=== PATIENT | female | born 1965 | race Caucasian/White ===

== ENCOUNTER 2017-01-29 13:04 | Inpatient (IN) | payer SELFPAY ==
[~2017-01-29] VITALS: Ht 124.5 cm; Wt 68.5 kg
--- NOTE | 2017-01-29 10:40 | NUR ---
RECEIVED REPORT FROM GUIDO FROM [place]. AWAITING PATIENTS ARRIVAL.
[~2017-01-29 13:04] MED LIST: ACET-2619 PO; ACET-787 PO; ASCO500T45 PO; ATOR40TA PO; BACL10TA4 PO; CRAN450C PO; DEXT1CAP3 PO; DOCU100C5 PO; GABA400C PO; GLAT20KI MR; HUM SUBQ; LANTUS SUBQ; MULT-1184 PO; NUTR30LI2 PO; QUET50TA PO; VAN1PM IV; WARF-18 PO; [UNRECOGNIZED DRUG - CODE] PO; [UNRECOGNIZED DRUG - CODE] TP
[2017-01-29 13:10] VITALS: BP 124/81
[2017-01-29] MEDS ORDERED: INSULIN LISPRO SLIDING SCALE 100 UNITS/ML VIAL SUBQ PRN (13:15)
[2017-01-29] MEDS: NACL 0.45% 1,000 ML IV SCH ×2 (13:15→23:45)
--- NOTE | 2017-01-29 13:15 | NUR ---
PATIENT ARRIVED VIA GURNEY TRANSPORTED FROM [facility]. PATIENT IS AWAKE AND ALERT BUT IS NONVERBAL. SHE DOESN'T FOLLOW COMMANDS. NO SIGNS AND SYMPTOMS OF ACUTE DISTRESS NOTED AT THIS TIME. LUNG SOUNDS ARE CLEAR BILATERALLY, BOWEL SOUNDS ARE ACTIVE. PATIENT HAS IV TO LEFT HAND, 24G. SITE IS CLEAN, DRY, PATENT AND INTACT. PATIENTS SKIN IS INTACT. TOOK PICTURES OF SCARS THAT SHE HAS ON SACRUM, RIGHT HEEL, AND RIGHT HAND. PATIENTS LEGS ARE CONTRACTED. ORIENTED PATIENT TO ROOM, PLACED CALL LIGHT WITHIN REACH. BED IN LOWEST POSITION, AND SIDERAILS UP X2. WILL CONTINUE TO MONITOR.
[2017-01-29 14:03] LABS: HEMATOCRIT 42.7 % (36-48); MEAN CORPUSCULAR HEMOGLOBIN 30 pg (27-31); MEAN CORPUSCULAR HGB CONC 33 g/dL (33-37); MEAN CORPUSCULAR VOLUME 93 fL (80-94); PLATELET COUNT (AUTO) 179 K/uL (140-450); RED BLOOD CELL COUNT(AUTO) 4.61 MIL/uL (4.20-5.40); RED CELL DISTRIBUTION WIDTH 12.6 % (11.6-13.7); WHITE BLOOD COUNT (AUTO) 5.9 K/uL (4.8-10.8)
[2017-01-29 14:25] LABS: PROTHROMBIN TIME 12.9 secs (10.8-13.4)
[2017-01-29 14:37] LABS: ANION GAP 7.3 (8-16); CARBON DIOXIDE 30.8 mmol/L (21-32); CREATININE 0.4 mg/dL (0.6-1.3); EOSINOPHILS % (MANUAL) 2 % (0-4); LYMPHOCYTES % (MANUAL) 40 % (20-46); MONOCYTES % (MANUAL) 10 % (5-12); POTASSIUM 4.1 mmol/L (3.5-5.1)
[2017-01-29 16:00] VITALS: BP 108/74
[2017-01-29] MEDS: BLOOD GLUCOSE MONITORING 1 DEV DEV FS SCH (18:16)
--- NOTE | 2017-01-29 19:23 | NUR ---
ENDORSED PATIENT TO LEASING AGENT NURSE FOR CONTINUITY OF CARE. PATIENT IN STABLE CONDITION.
--- NOTE | 2017-01-29 19:24 | NUR ---
PATIENT IS CURRENTLY AWAKE RESTING IN BED PATIENT HAS BEEN TURNED AND REPOSITIONED FOR COMFORT. NO PAIN OR DISCOMFORT NOTED.IVF INFUSING WELL IV SITE PATENT.CALL LIGHT AND FREQUENT VISUAL CHECKS WILL BE DONE.
[2017-01-29 20:00] VITALS: BP 103/62
--- NOTE | 2017-01-29 20:00 | NUR ---
Patient's Plan of Care was discussed and reviewed with GLOVE MACHINE OPERATOR: CONNOR NOEL.
--- NOTE | 2017-01-29 20:00 | NUR ---
PATIENT IS CURRENTLY RESTING IN BED LOTS OF SECRETIONS AND GURLING HEARD HOB RAISED UP AND I SUCTIONED THE PATIENT WITH THE JANKER AND SUCTIONED THE MOUTH PATIENT COUGHS BUT IS UNABLE TO COUGH UP THE SECRETIONS.I CALLED RESP THERAPIST NATY AND INFORMED HER THAT EVEN THOUGH I SUCTIONED THE PATIENT I CAN STILL HEAR GURGLING.SHE SAID SHE WILL COME SOON SHE CAN TO SUCTIONS THE PATIENT.
--- NOTE | 2017-01-29 20:15 | NUR ---
PATIENT DOING BETTER CURRENTLY SLEEPING NO MORE GURGLING HEARD AT THIS TIME.WILL CONTINUE TO MONITOR.
--- NOTE | 2017-01-29 22:15 | NUR ---
RESP THERAPIST NATY AND LEIGH ANN CAME TO CHECK ON THE PATIENT AND SEE IF SHE THEY NEED TO SUCTION HER AND LEIGH ANN ASSESSED THE PATIENT.PATIENT IS SLEEPING IN NO DISTRESS AT THIS TIME AND NO GURGLING HEARD. I TOLD NATY THAT PATIENT'S O2SAT 93-95% ON ROOM AIR. PATIENT IS CURRENTLY PINK IN COLOR NO DISTRESS. PATIENT DOESN'T NEED TO BE SUCTIONED AT THIS TIME.WILL CONTINUE TO MONITOR.FREQUENT VISUAL CHECKS WILL BE DONE.
--- NOTE | 2017-01-30 | NUR ---
PATIENT TURNED AND REPOSITIONED KEPT CLEAN AND DRY AND WAS SUCTIONED HAS FEW SECRETIONS THAT SHE CANNOT COUGH OUT VITALS STABLE 02SAT 93% ON ROOM AIR PATIENT TOLERATES SUCTIONING WELL.HOB ELEVATED AND I ALSO PUT BILATERAL HEEL PROTECTORS TO PROTECT HER HEELS FORM DEVELOPING PRESSURE SORE AREAS AND OFFLOADING WITH PILLOWS DONE ALSO.
[2017-01-30 00:26] VITALS: BP 117/79
[2017-01-30] MEDS: BLOOD GLUCOSE MONITORING 1 DEV DEV FS SCH ×4 (00:47→18:00)
--- NOTE | 2017-01-30 01:40 | NUR ---
PATIENT MONITORED SUCTIONED PATIENT TOLERATED WELL ORAL CARE GIVEN.WILL CONTINUE TO MONITOR.
--- NOTE | 2017-01-30 03:15 | NUR ---
PATIENT SUCTIONED CAREFULLY AND ORAL CARE GIVEN.PATIENT TOLERATES SUCTIONING WELL.
--- NOTE | 2017-01-30 03:49 | NUR ---
SCD'S APPLIED TO BOTH LOWER EXTREMITIES FOR DVT PROPHALAXIS.ALSO PATIENT HASN'T VOIDED SINCE THIS EVENING I INFORMED FINISH MOLDER ESTAPON AND BLADDER SCANNER WAS USED TO CHECK IF SHE IS RETAINING URINE IN HER BLADDER THE SCANNER SHOWS LESS THAN 100ML THE HIGHEST READING WAS 78ML.BLADDER IS SOFT AND NON DISTENDED PATIENT HAS NO COMPLAINS OF PAIN OR DISCOMFORT AT THIS TIME.SHE CONTINUES TO BE NPO AND IVF INFUSING WELL IV SITE PATENT. PATIENT CONTINUES TO BE TURNED AND REPOSITIONED AND PULLED UP IN BED WITH THE ASSISTANCE OF OSCAR ARMENDARIZ.
--- NOTE | 2017-01-30 05:30 | NUR ---
PATIENT STABLE SLEEPING AT THIS TIME.
--- NOTE | 2017-01-30 07:13 | NUR ---
PATIENT CURRENTLY STABLE KEPT CLEAN AND DRY IVF INFUSING WELL IV WAS RESTARTED TO RT HAND g#22 AT FIRST ATTEMPT WITH GOOD BLOOD RETURN.PATIENT SUCTIONED CONTINUES TO BE CLEAN AND DRY.
--- NOTE | 2017-01-30 07:34 | NUR ---
PATIENT RESTING IN BED SLEEPING REPORT GIVEN TO FIDENCIO FREEDMAN AT BEDSIDE ENDORSED ABOUT CONSULT WITH MD Krystal MORTON TODAY TO FOLLOW UP.SHE WILL RESUME CARE OF THE PATIENT.
--- NOTE | 2017-01-30 07:35 | NUR ---
RECEIVED REPORT FROM SIZE CHANGER NURSE CONNOR AT BEDSIDE FOR CONTINUITY OF CARE. PT IS A/O X1 TO NAME. INTRODUCED SELF AND UPDATED BOARD. PT IN STABLE CONDITION.
[2017-01-30 08:00] VITALS: BP 96/66
[2017-01-30] MEDS: NACL 0.45% 1,000 ML IV SCH ×2 (09:15→19:15)
--- NOTE | 2017-01-30 09:27 | NUR ---
PATIENT HAS BEEN SCREENED AND CATEGORIZED HIGH NUTRITION RISK. PATIENT WILL BE SEEN WITHIN 1-2 DAYS OF ADMISSION. 01/30/17-01/31/[address]
--- NOTE | 2017-01-30 10:18 | NUR ---
PT PRESENTED WITH AUDIBLE RHONCHI PT SUCTIONED NST BY DANYELLE ZAMBRANO AND MYSELF OBTAINED THICK SECRETIONS. AIRWAY IS PATENT. PT WOB HAS DECREASED .NURSE AWARE.
[2017-01-30] MEDS: diphenhydrAMINE 50 MG/ML VIAL ONE ×2 (10:26→10:59)
[2017-01-30] MEDS: MIDAZOLAM 2 MG/2 ML VIAL ONE ×2 (10:26→10:57)
[2017-01-30] MEDS: fentaNYL 0.05 MG/ML VIAL ONE ×2 (10:26→10:57)
--- NOTE | 2017-01-30 10:30 | NUR ---
PT LEFT UNIT FOR OR AND EGD AND PEG PLACEMENT. PT LEFT IN STABLE CONDITION VIA BED ACCOMPANIED BY RN.
[2017-01-30] MEDS: ceFAZolin 1,000 MG VIAL ONE ×2 (11:01→11:05)
--- NOTE | 2017-01-30 11:30 | NUR ---
PT RETURNED TO UNIT FROM OR. REPORT GIVEN BY OR NURSE. VS: BP 120/70 HR 90, O2 SAT 100% ON O2 2L NC, RR 18, TEMP 98.8. NO SIGNS OF DISTRESS. G-TUBE IN PLACE. ANCEF CONTINUED IVPB. REPOSITIONED PT TO RIGHT SIDE. BED IN LOW POSITION. CALL LIGHT WITHIN REACH. WILL CONTINUE TO MONITOR.
--- NOTE | 2017-01-30 12:30 | NUR ---
PT IS RESTING COMFORTABLY IN BED RIGHT NOW. VS: BP 119/86 HR 88 O2 SAT 98% ON ROOM AIR, RR 18, TEMP 97.8. NO SIGNS OF DISTRESS. G-TUBE PLACEMENT INTACT. WILL CONTINUE TO MONITOR.
--- NOTE | 2017-01-30 14:00 | NUR ---
CHECKED PT'S VS: BP 116/88, HR 83, O2 SAT 97% ON ROOM AIR, RR 16. NO SIGNS OF DISTRESS. PT IS SLEEPING IN BED RIGHT NOW. WILL CONTINUE TO MONITOR.
[2017-01-30 16:00] VITALS: BP 125/78
--- NOTE | 2017-01-30 19:20 | NUR ---
ENDORSED PT TO BARN WORKER NURSE ROMEO AT BEDSIDE FOR CONTINUITY OF CARE. SUCTIONED ORAL SECRETIONS. PT IN STABLE CONDITION.
--- NOTE | 2017-01-30 19:25 | NUR ---
RECEIVED PT FROM KISHORE RN PT AWAKE ALERT GARBLED WITH ABUNDANT SECRETION IS SUCTUIONED NECESSARY G TUBE IN PLACE IV ON LEFT HAND INFUSING WELL NOT DISTRESS NOTED INITIALASSESSMENT DONE.
[2017-01-30 20:00] VITALS: BP 118/81
--- NOTE | 2017-01-30 22:00 | NUR ---
PT ON CLOSE MONITORING SUCTIONED NECESSARY
--- NOTE | 2017-01-31 | NUR ---
PT SLEEPING NOT DISTRESS NOTED REPOSITIONED Q2H IV INFUSING WELL ON LEFT HAND
[2017-01-31 04:00] VITALS: BP 101/69
--- NOTE | 2017-01-31 04:00 | NUR ---
PT HAS BEEN MONITORING CLOSE SUCTIONED NECESSARY AND REPOSITIONED Q2H IV ON LEFT HAND INFUSING WELL
--- NOTE | 2017-01-31 05:00 | NUR ---
SPONGE BATH GIVEN LINEN CHANGED PT IS SUCTIONES REPOSITIONED NOT DISTRESS NOTED
[2017-01-31] MEDS: BLOOD GLUCOSE MONITORING 1 DEV DEV FS SCH ×3 (06:51→12:23)
--- NOTE | 2017-01-31 06:53 | NUR ---
BLOOD SUGAR TEST 84
[2017-01-31 06:59] LABS: BASOPHILS # (AUTO) 0.3 K/uL (0.00-0.22); BASOPHILS % (AUTO) 3.6 % (0.0-2.0); EOSINOPHILS # (AUTO) 0.1 K/uL (0-0.4); EOSINOPHILS % (AUTO) 0.7 % (0.0-4.0); HEMATOCRIT 39.3 % (36-48); HEMOGLOBIN 13.1 g/dL (12.0-16.0); LYMPHOCYTES # (AUTO) 1.7 K/uL (2.5-16.5); LYMPHOCYTES % (AUTO) 22.3 % (20.5-51.1); MEAN CORPUSCULAR HEMOGLOBIN 31 pg (27-31); MEAN CORPUSCULAR HGB CONC 33 g/dL (33-37); MEAN CORPUSCULAR VOLUME 92 fL (80-94); MONOCYTES # (AUTO) 0.6 K/uL (0.8-1.0); MONOCYTES % (AUTO) 7.9 % (1.7-9.3); NEUTROPHILS # (AUTO) 4.7 K/uL (1.8-7.7); NEUTROPHILS % (AUTO) 65.5 % (42.2-75.2); PLATELET COUNT (AUTO) 156 K/uL (140-450); RED CELL DISTRIBUTION WIDTH 11.9 % (11.6-13.7); WHITE BLOOD COUNT (AUTO) 7.4 K/uL (4.8-10.8)
--- NOTE | 2017-01-31 07:00 | NUR ---
ENDORSEMENT RECEIVED FROM SUPERVISORY LIFEGUARD NURSE. PATIENT'S RESPIRATION EVEN, UNLABOR. SKIN DRY AND WARM. CALL LIGHT WITHIN REACH. WILL CONTINUE TO MONITOR
[2017-01-31 07:14] LABS: ANION GAP 13.5 (8-16); CARBON DIOXIDE 26.9 mmol/L (21-32); CREATININE 0.4 mg/dL (0.6-1.3); POTASSIUM 3.4 mmol/L (3.5-5.1)
[2017-01-31 08:00] VITALS: BP 112/78
--- NOTE | 2017-01-31 08:00 | NUR ---
PATIENT AWAKE, EYES OPEN SPONTANEOUSLY. RESPIRATION EVEN, LUNGS SOUND DIMINISHED THROUGHOUT. CARDIAC WITH S1,S2 PRESENT. BOWEL SOUNDS ACTIVE 4 QUADRANTS. IV 24G ON LEFT HAND PATENT AND INTACT. FLACC 0. PATIENT WAS REPOSITIONING. PATIENT TOLERATED WELL. CALL LIGHT WITHIN REACH. WILL CONTINUE TO MONITOR
[2017-01-31] MEDS ORDERED: POTASSIUM CHLORIDE 20% 40 MEQ/15 ML UDC GT SCH (09:00)
--- NOTE | 2017-01-31 09:30 | NUR ---
TUBE FEEDING WAS STARTED PER ORDER. 0ML RESIDUAL. MED WAS GIVEN PER ORDER. Addendum: 01/31/17 at 1148 by Tessy Dolan RN PATIENT TOLERATED FEEDING WELL
--- NOTE | 2017-01-31 11:15 | NUR ---
PATIENT TO GO BACK TO [facility] SPOKE WITH RUBY AND FAXED INFORMATION TO HER AT [phone].
[2017-01-31] MEDS: NACL 0.45% 1,000 ML IV SCH (11:31)
--- NOTE | 2017-01-31 13:15 | NUR ---
D/C OXYGEN. PATIENT SPO2 94% ON ROOM AIR. NO SOB SEEN. PATIENT TOLERATED WELL. FEEDING WAS STOPPED PRIOR TO TRANSFER. CALL LIGHT WITHIN REACH. WILL CONTINUE TO MONITOR
--- NOTE | 2017-01-31 13:38 | NUR ---
SPOKE WITH RUBY AT [facility]. THE PATIENT CAN GO BACK TO ROOM 28C. I SET UP TRANSPORT WITH [facility] FOR 3P.Cain BRUCE RN NOTIFIED.
--- NOTE | 2017-01-31 13:59 | NUR ---
CALL AND GAVE REPORT TO RN AT [facility]
--- NOTE | 2017-01-31 15:15 | NUR ---
CALLED AND LEFT VOICEMAIL NOTIFYING FAMILY REGARDING TRANSFERRING PATIENT BACK TO [facility]
--- NOTE | 2017-01-31 15:24 | NUR ---
DISCHARGE INSTRUCTION PACKAGE WAS GIVEN TO THE EMT. REPORT GIVEN TO THE EMT. IV WAS REMOVED WITH CATHETER TIP INTACT. PATIENT IS STABLE AT THIS TIME. ALL BELONGINGS WERE TAKEN BY THE EMT. PATIENT WAS TRANSFERRED OUT WITH A GURNEY BY EMT.
== END 2017-01-31 15:30 | disposition home or self-care (01) | DRG 392 ==
LOC: MTU 13:04
PROVIDERS: ADMIT Family Medicine; ATTEND Family Medicine
PROC: 0DH68UZ Insertion of Feeding Device into Stomach, Via Natural or Artificial Opening Endoscopic (ICD-10-PCS; principal; 2017-01-30 10:30)
PROC: 0DB68ZX Excision of Stomach, Via Natural or Artificial Opening Endoscopic, Diagnostic (ICD-10-PCS; 2017-01-30 10:30)
DX: R13.10 Dysphagia, unspecified (principal); G35 Multiple sclerosis; F03.90 Unspecified dementia, unspecified severity, without behavioral disturbance, psychotic disturbance, mood disturbance, and anxiety; I10 Essential (primary) hypertension; E11.9 Type 2 diabetes mellitus without complications; Z74.01 Bed confinement status; Z87.440 Personal history of urinary (tract) infections; K29.70 Gastritis, unspecified, without bleeding; Z86.711 Personal history of pulmonary embolism
CPT/HCPCS: 36415; 71010; 80048; 82948; 85025; 85379; 85610; 85730; 86677; 87081; 93005; J0690; J1200; J1815; J2250; J3010; J7030; Q0092